=== PATIENT | male | born 1955 | race Caucasian/White ===

== ENCOUNTER 2022-11-05 16:35 | Emergency (ER) | payer OTHER, SELFPAY ==
[2022-11-05 16:49] VITALS: BP 158/93; PULSE 69; RESP 20; TEMP 36.1; O2SAT 95; BMI 40.7
--- NOTE | 2022-11-05 18:48 | CRLHL7_ITS ---
For Patients: As a result of the Century Cures Act, medical imaging exams and procedure reports are released immediately into your electronic medical record. You may view this report before your referring provider. If you have questions, please contact your health care provider. INDICATION: FALL TECHNIQUE: Chest 1 view. COMPARISON: None. FINDINGS: Cardiovascular and mediastinum: Heart size and vasculature are normal in caliber and appearance. Mediastinum is within normal limits. Lungs and pleural space: Lungs are clear. No sign of infiltrate or mass. No sign of pleural effusion. No pneumothorax. Bones and soft tissues: No significant findings. IMPRESSION: Unremarkable chest. Dictated by: Arnold Forde MD @ 11/05/2022 19:20:17 (Electronically Signed)
--- NOTE | 2022-11-05 18:48 | CRLHL7_ITS ---
For Patients: As a result of the Cures Act, medical imaging exams and procedure reports are released immediately into your electronic medical record. You may view this report before your referring provider. If you have questions, please contact your health care provider. INDICATION: Fall TECHNIQUE: Three views right shoulder COMPARISON: None FINDINGS: Bones: Alignment is normal. Displaced distal clavicular fracture. Joint spaces: Unremarkable. Soft tissues: Unremarkable. IMPRESSION: Displaced distal clavicular fracture. Dictated by Arnold Forde MD @ 11/05/2022 7:18:33 PM Dictated by: Arnold Forde MD @ 11/05/2022 19:18:40 (Electronically Signed)
--- NOTE | 2022-11-05 19:03 | ED_ITS ---
HPI - Fall General Chief Complaint: Fall/Minor Trauma Stated Complaint: slipped on ice, rib/shoulder pain Time Seen by Provider: 11/05/22 18:42 History of Present Illness HPI Narrative: This 67-year-old male comes in because of a fall that occurred just prior to arrival. He slipped on ice and fell onto his right scapular region. He states that he did not have loss of consciousness and did not hit his head. He was able to get up and ambulate after this fall. He reports pain in the posterior aspect of his right shoulder in the scapular region. This pain is reproduced a bit when taking a deep breath. He does not report any other injury. Related Data Home Medications Medication Instructions Recorded Confirmed chlorthalidone 25 mg tablet mg 11/05/22 losartan 100 mg tablet mg 11/05/22 Allergies Allergy/AdvReac Type Severity Reaction Status Date / Time No Known Drug Allergies Allergy Verified 11/05/22 16:52 Review of Systems Status of ROS: Reports: 10 or more systems reviewed and unremarkable except as noted in History and below Narrative: Constitutional: No fevers, no weight gain or loss. Eyes: No discharge. No vision changes. HENT: No congestion, no sore throat, no ear pain. Cardiovascular: No chest pain, no palpitations. Respiratory: No shortness of breath, no wheezes, no cough. Gastrointestinal: No abdominal pain, no vomiting, no diarrhea. Genitourinary: No dysuria, no hematuria. Musculoskeletal: Normal range of motion. Pain in the right scapular region. Skin: No rashes, no pruritis. Neurological: No dizziness, weakness, sensory change, speech change. Endo/Heme/Allergies: No bruising or bleeding. No polydipsia. Pysch: no suicidality, no anxiety, no insomnia. All other systems reviewed and are negative. PFSH PFS Social History Smoking Status: Never smoker Do you use any of these nicotine containing products: None Second hand tobacco smoke exposure: No How often do you have a drink containing alcohol: never How often do you have six or more drinks on one occasion: Never AUDIT-C Alcohol total score: 0 Non-prescribed substance use: denies use service: No Exam Narrative: Exam Narrative: Constitutional: Well-developed, well-nourished, no acute distress. HEENT: Normocephalic, atraumatic. Neck: Normal range of motion. Nontender. Supple. Heart: Regular. No murmurs. Normal rate. Intact distal pulses. Lungs: Clear to auscultation. No chest discomfort. No wheezes, rhonchi, or rales. Abdomen: Normal bowel sounds. Nontender. No rebound tenderness. Genitalia: Deferred. Back: No midline tenderness. Normal range of motion. Pain in the right scapular region. No sign of deformity or skin injury. Extremities: Normal range of motion. No injury. Skin: Intact. No rash. Warm. No erythema or pallor. Neurologic: No altered sensation. No weakness. Alert and oriented. Psychiatric: No suicidality. No anxiety or depression. No insomnia. Nursing notes and vitals signs are reviewed. Const: Vital Signs, click to edit/add: Vital Signs - 24 hr 11/05/22 16:49 Temperature 96.9 F L Pulse Rate [Pulse Oximeter] 69 Respiratory Rate 20 Blood Pressure [Ri ght Upper Arm] 158/93 H Pulse Oximetry 95 Oxygen Delivery Me thod Room Air Course Vital Signs Vital signs: Initial Vital Signs Temperature 96.9 F L 11/05/22 16:49 Temperature Source Temporal Artery Scan 11/05/22 16:49 Pulse Rate 69 11/05/22 16:49 Respiratory Rate 20 11/05/22 16:49 Blood Pressure 158/93 H 11/05/22 16:49 Blood Pressure Mean 114 11/05/22 16:49 Blood Pressure Position Supine 11/05/22 16:49 Pulse Oximetry 95 11/05/22 16:49 Oxygen Delivery Method 11/05/22 16:49 Vital Signs Temperature 96.9 F L 11/05/22 16:49 Pulse Rate 69 11/05/22 16:49 Respiratory Rate 20 11/05/22 16:49 Blood Pressure 158/93 H 11/05/22 16:49 Pulse Oximetry 95 11/05/22 16:49 Oxygen Delivery Method 11/05/22 16:49 Temperature 96.9 F L 11/05/22 16:49 Pulse Rate 69 11/05/22 16:49 Respiratory Rate 20 11/05/22 16:49 Blood Pressure 158/93 H 11/05/22 16:49 Pulse Oximetry 95 11/05/22 16:49 Oxygen Delivery Method 11/05/22 16:49 MDM - Fall MDM Narrative Medical decision making narrative: This 67-year-old male comes in with an injury from a fall as described above. X-ray imaging of the chest and the right shoulder show no acute findings. The patient is okay to be discharged home. He did receive a prescription for Instymed [place]. He is encouraged to increase activity as tolerated. Imaging Data XR R Shoulder: Radiologist's impression: Displaced distal clavicular fracture. Chest x-ray: Radiologist's impression: Unremarkable chest. Discharge Plan Discharge Clinical Impression: Contusion of back Patient Disposition: Home, Self-Care Condition: Stable Additional Instructions: Take medication as needed and indicated. Increase activity as tolerated. Follow up with MD or return if worsening. Prescriptions: No Action chlorthalidone 25 mg tablet losartan 100 mg tablet Follow Up/Referrals: Arnold Trujillo MD [Referring] - Stand Alone Forms: [employer] Info Instructions
== END 2022-11-05 20:24 | disposition home or self-care (01) ==
PROVIDERS: Emergency Provider Emergency Medicine Emergency Medical Services; PCP Family Medicine
DX: S20.221A Contusion of right back wall of thorax, initial encounter (principal); W00.0XXA Fall on same level due to ice and snow, initial encounter
CPT/HCPCS: 71045; 73030; 99284

== ENCOUNTER 2023-03-27 14:03 | Outpatient (CLI) | payer OTHER, SELFPAY | END 2023-03-27 14:04 | disposition home or self-care (01) | LOC: AMB 03-28 09:14 | PROVIDERS: PCP Family Medicine; Visit Provider Family Medicine | DX: R53.83 Other fatigue (principal); R53.1 Weakness; R11.0 Nausea; R22.42 Localized swelling, mass and lump, left lower limb | CPT/HCPCS: A0425; A0427 ==

== ENCOUNTER 2023-03-27 14:32 | Inpatient (IN) | payer OTHER, SELFPAY ==
[2023-03-27] VITALS (24 sets, daily range): BP systolic 92–114; BP diastolic 56–89; PULSE 79–88; RESP 14–28; TEMP 35.9–37; O2SAT 1–97; BMI 39.4
--- NOTE | 2023-03-27 14:45 | CRLHL7_ITS ---
For Patients: As a result of the Century Cures Act, medical imaging exams and procedure reports are released immediately into your electronic medical record. You may view this report before your referring provider. If you have questions, please contact your health care provider. INDICATION: Hypoxia, history of PE, leg swelling. COMPARISON: CT chest 07/05/2012. TECHNIQUE: CT chest angiogram PE protocol acquired with 95 cc of Isovue 370 IV contrast. Coronal and sagittal reconstructions. 2D and 3D MIP images for post processing were performed and interpreted on an independent workstation, and 3D images were permanently archived. FINDINGS: Normal heart size. Normal caliber thoracic aorta. Mild coronary artery calcifications. No pericardial effusion. No thoracic lymphadenopathy. Mild bilateral gynecomastia, more prominent on the right but unchanged compared to prior exam. The thyroid gland is normal in appearance. The main pulmonary artery is enlarged measuring 3.7 cm. There are acute pulmonary emboli bilaterally involving the main pulmonary arteries and extending into the segmental and subsegmental branches of all the lobes. Clot burden is large. There is evidence of right heart strain, with enlargement of the right ventricle, flattening of the interventricular septum, and elevated RV/LV ratio measuring 1.5. Bibasilar atelectasis. Patchy opacities in the lingula and superior segment left lower lobe may be infectious/inflammatory versus developing pulmonary infarcts. No pleural effusion or pneumothorax. Diffuse bronchial wall thickening. No central endobronchial lesion. No pulmonary nodules identified. Mild elevation of the left hemidiaphragm. Atrophic nodular left hepatic lobe similar to prior exam. The spleen is enlarged measuring 15 cm in length. Splenule. Punctate calcifications in the pancreatic tail. The visualized upper abdomen is otherwise unremarkable. Degenerative changes of the spine. Subacute appearing fractures of the right anterior 3rd-7th ribs. IMPRESSION: 1. Positive for acute pulmonary emboli bilaterally involving the main pulmonary arteries and all the lobes. Clot burden is large and there is evidence of right heart strain. 2. Patchy opacities in the lingula and left lower lobe may be infectious/inflammatory versus developing pulmonary infarcts. 3. Multiple subacute appearing right rib fractures. 4. Splenomegaly. 5. Findings discussed with Emani melvin at 5:11 p.m. on 03/27/2023. Please note that all CT scans at this facility use dose modulation, iterative reconstruction, and/or weight-based dosing when appropriate to reduce radiation dose to as low as reasonably achievable. Dictated by Amalia Short MD @ 03/27/2023 5:14:09 PM (Electronically Signed)
--- NOTE | 2023-03-27 14:58 | ED_ITS ---
HPI - General Adult General Date Seen: 03/27/23 Chief complaint: Chest Pain Stated complaint: nausea, lightheadedness Time Seen by Provider: 03/27/23 14:44 Source: patient and EMS Mode of arrival: EMS Limitations: no limitations History of Present Illness HPI narrative: Patient is a 67-year-old male who arrives via EMS after developing sudden onset of lightheadedness, nausea and diaphoresis at home about 45 minutes prior to arrival. He had a normal blood sugar per EMS. He had initial blood pressures in the 80s, he was mid 90s after of small amount of normal saline and route. He was satting in the mid 90s on 4 L of oxygen. He denied chest pain. He does have a history of pulmonary embolism he says 10 years ago. He says he was advised to stay on anticoagulation but he says he decided to ?have 3 beers a day instead?. He notes for the past month his left leg has been swollen, he says he was just about to go get it checked out when these symptoms developed. He has not had significant pain in the leg but it has been somewhat red. He says there was not significant certainty around why he developed a clot 10 years ago, it was not related to surgery or travel. Did not have syncopal episode today. EKG per paramedics showed a little ST depression, but no ST elevation or arrhythmia. Related Data Home Medications Medication Instructions Recorded Confirmed chlorthalidone 25 mg tablet 25 mg PO DAILY 11/05/22 03/27/23 losartan 100 mg tablet 100 mg PO DAILY 11/05/22 03/27/23 fluticasone propionate 50 2 spray intranasal DAILY 03/27/23 03/27/23 mcg/actuation nasal spray,suspension Allergies Allergy/AdvReac Type Severity Reaction Status Date / Time No Known Drug Allergies Allergy Verified 11/05/22 16:52 Review of Systems Status of ROS: Reports: 10 or more systems reviewed and unremarkable except as noted in History and below PFSH PFS Social History Smoking Status: Never smoker Do you use any of these nicotine containing products: None Second hand tobacco smoke exposure: No How often do you have a drink containing alcohol: never How often do you have six or more drinks on one occasion: Never AUDIT-C Alcohol total score: 0 Non-prescribed substance use: denies use service: No Exam Narrative: Exam Narrative: Vital signs as noted above. In general, an alert, diaphoretic male. Speaks in full sentences. Head: Normocephalic, atraumatic. Eyes: Pupils are equal reactive. Extraocular movements are full. Conjunctivae are normal. ENT: Mucous membranes are moist. Neck: Supple without lymphadenopathy. Heart: Regular rate and rhythm. No murmur or rub. Lungs: Clear bilaterally. No increased work of breathing, crackles or wheezes. Abdomen: Soft and nontender. Obese. Extremities: Significant edema and erythema noted in the left lower extremity. Neurologic: Patient is alert and oriented to person and place. Speech is fluent. Face is symmetric. Moves all extremities equally. Affect: Normal. Skin: Diaphoretic on arrival. Well perfused. Const: Vital Signs, click to edit/add: Vital Signs - 24 hr 03/27/23 14:33 03/27/23 14:43 03/27/23 14:47 Temperature 98.6 F Pulse Rate 82 Pulse Rate [Pulse Oximeter] 87 Respiratory Rate 28 H Blood Pressure 106/74 Blood Pressure [Le ft Upper Arm] 106/74 Pulse Oximetry 93 91 92 Oxygen Delivery Me thod Nasal Cannula Nasal Cannula Oxygen Flow Rate 4 4 03/27/23 14:47 03/27/23 15:12 03/27/23 15:15 Temperature Pulse Rate 83 83 Pulse Rate [Pulse Oximeter] Respiratory Rate Blood Pressure 92/62 Blood Pressure [Le ft Upper Arm] Pulse Oximetry 92 87 L 90 Oxygen Delivery Me thod Nasal Cannula Oxygen Flow Rate 4 6 03/27/23 15:17 03/27/23 15:30 03/27/23 15:32 Temperature Pulse Rate 82 84 86 Pulse Rate [Pulse Oximeter] Respiratory Rate Blood Pressure 97/68 92/58 L Blood Pressure [Le ft Upper Arm] Pulse Oximetry 95 95 93 Oxygen Delivery Me thod Oxygen Flow Rate 5 03/27/23 15:45 03/27/23 15:47 03/27/23 16:00 Temperature Pulse Rate 86 88 84 Pulse Rate [Pulse Oximeter] Respiratory Rate 16 Blood Pressure 100/62 Blood Pressure [Le ft Upper Arm] Pulse Oximetry 92 92 96 Oxygen Delivery Me thod Oxygen Flow Rate 03/27/23 16:02 03/27/23 16:15 03/27/23 16:17 Temperature Pulse Rate 88 88 86 Pulse Rate [Pulse Oximeter] Respiratory Rate 14 Blood Pressure 103/60 102/75 Blood Pressure [Le ft Upper Arm] Pulse Oximetry 96 95 96 Oxygen Delivery Me thod Room Air Oxygen Flow Rate 03/27/23 16:35 03/27/23 16:45 Temperature Pulse Rate 86 87 Pulse Rate [Pulse Oximeter] Respiratory Rate Blood Pressure 108/56 L Blood Pressure [Le ft Upper Arm] Pulse Oximetry 86 L 93 Oxygen Delivery Me thod Room Air Nasal Cannula Oxygen Flow Rate 4 Documenting provider has reviewed patient's vital signs: yes Course Course Hospital Course: On arrival, patient was maintained on monitor, oxygen, oximetry. He had an EKG which is of poor quality, lot of baseline waiver. Computer cause this an accelerated junctional rhythm, I suspect that it may be sinus with a first- degree AV block. Difficult to comment on any ST segment changes due to baseline waiver but I do not think there is any ST segment elevation. I did attempt to look with the ultrasound for right ventricular dilation but due to body habitus images are fairly limited and I do not feel comfortable making a determination based on ultrasound. I did ask CT to take him over for CT scan rate away. He does not have a known history of renal insufficiency and I think risk versus benefit the importance of evaluating for pulmonary embolism outweighs awaiting determination of creatinine in this case. I strongly suspect pulmonary embolism as the cause of his symptoms, but other considerations would include acute coronary syndrome, dissection, infectious or metabolic process. CT scan by my review shows large clot in the main right in main left pulmonary arteries. I am awaiting formal CT read but I have treated with heparin based on my read as CT reads are taking a significant amount of time today. He is requiring 4-5 L of oxygen. I did talk with Dr. Ha who was on-call as educational technology coordinator at [facility] [place], to discuss possible tPA. Patient is not showing significant right heart strain, troponin was 0.01, EKG did not show an S1 Q3 T3 pattern he is not tachycardic and hypotension has responded to a fluid challenge. Therefore, Dr. Ha recommended against tPA at this time. Will continue to monitor. Plan will be admission here for IV heparin for 24 hours. Will also order an ultrasound of the left lower extremity given significant edema to look for residual clot, for risk assessment purposes. Critical care 60 minutes. Vital Signs Vital signs: Initial Vital Signs Temperature 98.6 F 03/27/23 14:33 Temperature Source Oral 03/27/23 14:33 Pulse Rate 87 03/27/23 14:33 Respiratory Rate 28 H 03/27/23 14:33 Respiratory Effort Normal, Spontaneous, Non-Labored 03/27/23 14:33 Respiratory Depth Normal 03/27/23 14:33 Blood Pressure 106/74 03/27/23 14:33 Blood Pressure Mean 84 03/27/23 14:33 Blood Pressure Position Supine 03/27/23 14:33 Pulse Oximetry 93 03/27/23 14:33 Oxygen Delivery Method Nasal Cannula 03/27/23 14:33 Oxygen Flow Rate 4 03/27/23 14:33 Vital Signs Temperature 98.6 F 03/27/23 14:33 Pulse Rate 87 03/27/23 14:33 Respiratory Rate 28 H 03/27/23 14:33 Blood Pressure 106/74 03/27/23 14:33 Pulse Oximetry 93 03/27/23 14:33 Oxygen Delivery Method Nasal Cannula 03/27/23 14:33 Oxygen Flow Rate 4 03/27/23 14:33 Temperature 98.6 F 03/27/23 14:33 Pulse Rate 87 03/27/23 16:45 Respiratory Rate 14 03/27/23 16:02 Blood Pressure 108/56 L 03/27/23 16:35 Pulse Oximetry 93 03/27/23 16:45 Oxygen Delivery Method Nasal Cannula 03/27/23 16:45 Oxygen Flow Rate 4 03/27/23 16:45 Medical Decision Making Lab Data Labs: Lab Results 03/27/23 03/27/23 Range/Units 14:52 16:00 WBC 10.63 (4.50-11.00) K/uL RBC 4.54 (4.30-5.90) m/uL Hgb 13.9 (13.5-17.5) gm/dL Hct 40.9 (37.0-53.0) % MCV 90 (80-100) fL MCH 31 (26-34) pg MCHC 34 (32-36) gm/dL RDW Coeff of Robert 15.2 (11.5-15.5) % Plt Count 142 (140-440) K/uL Neut % (Auto) 75.8 H (42.0-72.0) % Lymph % (Auto) 17.1 L (20-44) % Merrick % (Auto) 4.0 (0.0-11.0) % Eos % (Auto) 2.5 (0.0-7.0) % Baso % (Auto) 0.2 (0.0-3.0) % Neut # (Auto) 8.10 H (1.7-7.0) K/uL Lymph # (Auto) 1.80 (0.90-2.90) K/uL Merrick # (Auto) 0.40 (0.00-0.90) K/UL Eos # (Auto) 0.27 (0.00-0.50) K/uL Baso # (Auto) 0.02 (0.00-0.30) K/uL Abs Immat Gran (auto) 0.04 (0.00-0.30) K/uL Imm/Tot Granulo (auto) 0.4 % INR 1.16 H (0.91-1.10) D-Dimer Quant (PE/DVT) 7.27 H (0.00-0.50) ug/ml VBG pH 7.359 (7.32-7.43) VBG pCO2 51 H (40-50) mmHG VBG pO2 32.7 (25-47) mmHG VBG HCO3 29 H (21-28) mmol/L Sodium 137 (135-149) mmol/L Potassium 2.7 L* (3.6-5.1) mmol/L Chloride 99 (96-114) mmol/L Carbon Dioxide 29 (20-32) mmol/L BUN 20 (7-30) mg/dL Creatinine 1.2 (0.5-1.5) mg/dL Estimated GFR 66 ml/min Glucose 145 H (60-115) mg/dL Calcium 8.6 (8.4-10.6) mg/dL Total Bilirubin 0.9 (0.1-1.5) mg/dL Direct Bilirubin 0.2 (0.0-0.5) mg/dL AST 36 H (12-35) U/L ALT 36 (4-50) U/L Alkaline Phosphatase 65 (40-150) U/L Lactate Baseline 1.7 (0.5-1.9) mmol/L C-Reactive Protein 1.1 H (0.5-1.0) mg/dL NT-Pro-B Natriuret Pep 100 pg/mL Total Protein 7.2 (6.0-8.3) g/dL Albumin 3.9 (3.3-5.0) g/dL TSH 2.880 (0.270-4.200) uIU/mL SARS-CoV-2 (PCR) Negative SARS-CoV-2 (Negative) POC Troponin I 0.01 (0.01-0.04) ng/ml Discharge Plan Discharge Clinical Impression: Pulmonary embolism Patient Disposition: Admitted As Observation Condition: Improved
--- NOTE | 2023-03-27 15:00 | ED.NURSE ---
Pt at imaging.
[2023-03-27 15:03] LABS: Basophils Absolute Auto 0.02 K/uL (0.00-0.30); Basophils Percent Auto 0.2 % (0.0-3.0); Eosinophils Absolute Auto 0.27 K/uL (0.00-0.50); Eosinophils Percent Auto 2.5 % (0.0-7.0); Hematocrit 40.9 % (37.0-53.0); Hemoglobin* 13.9 gm/dL (13.5-17.5); Immature Granulocytes Abs Auto 0.04 K/uL (0.00-0.30); Immature Granulocytes Pct Auto 0.4 %; Lymphocytes Percent Auto 17.1 % (20-44); Mean Corpuscular HGB Conc 34 gm/dL (32-36); Mean Corpuscular Hemoglobin 31 pg (26-34); Mean Corpuscular Volume 90 fL (80-100); Neutrophils Percent Auto 75.8 % (42.0-72.0); Platelet Count* 142 K/uL (140-440); RDW Coefficient of Variation % 15.2 % (11.5-15.5); Red Blood Count 4.54 m/uL (4.30-5.90); White Blood Count* 10.63 K/uL (4.50-11.00)
[2023-03-27 15:04] LABS: HCO3 VBG 29 mmol/L (21-28); Lactate Sepsis w/Reflex* 1.7 mmol/L (0.5-1.9); PCO2 VBG 51 mmHG (40-50); PO2 VBG 32.7 mmHG (25-47); pH VBG 7.359 (7.32-7.43)
[2023-03-27 15:10] LABS: Slide Review Reflex No
[2023-03-27 15:19] LABS: Troponin, Point-of-Care* 0.01 ng/ml (0.01-0.04)
[2023-03-27 15:22] LABS: Albumin* 3.9 g/dL (3.3-5.0); Chloride* 99 mmol/L (96-114)
[2023-03-27 15:23] LABS: Sodium* 137 mmol/L (135-149)
[2023-03-27 15:25] LABS: Creatinine* 1.2 mg/dL (0.5-1.5); Estimated Glomerular Filt Rate 66 ml/min
[2023-03-27 15:26] LABS: Alanine Aminotransferase* 36 U/L (4-50); Alkaline Phosphatase* 65 U/L (40-150); Aspartate Amino Transferase* 36 U/L (12-35); Bilirubin Direct* 0.2 mg/dL (0.0-0.5); Bilirubin Total* 0.9 mg/dL (0.1-1.5); Blood Urea Nitrogen* 20 mg/dL (7-30); Calcium* 8.6 mg/dL (8.4-10.6); Carbon Dioxide* 29 mmol/L (20-32); Glucose* 145 mg/dL (60-115); INR 1.16 (0.91-1.10); Prothrombin Time 15.5 Seconds; Total Protein* 7.2 g/dL (6.0-8.3)
[2023-03-27 15:29] LABS: C Reactive Protein* 1.1 mg/dL (0.5-1.0)
[2023-03-27] MEDS: 0.9 % SODIUM CHLORIDE 1000 ml 1,000 ML IV (15:33)
[2023-03-27] MEDS: HEPARIN 5,000 UNIT/0.5 ML INJ 10000 UNIT IVP (15:34)
[2023-03-27 15:37] LABS: D Dimer Quantitative* 7.27 ug/ml (0.00-0.50)
[2023-03-27] MEDS: HEPARIN 25,000 UNIT/500 ML BAG 30 UNIT IV (15:37)
--- NOTE | 2023-03-27 15:43 | CRLHL7_ITS ---
For Patients: As a result of the Century Cures Act, medical imaging exams and procedure reports are released immediately into your electronic medical record. You may view this report before your referring provider. If you have questions, please contact your health care provider. HISTORY: Known pulmonary embolism. Left leg swelling. TECHNIQUE: The venous system of left lower extremity was examined using grayscale, color and Doppler techniques. Compression was assessed where able to be assessed. The contralateral right common femoral vein was also evaluated. COMPARISON: Chest CT from 03/27/2023. FINDINGS: DVT is present within the left common femoral, femoral, deep femoral, popliteal, peroneal and posterior tibial veins. The DVT could extend more centrally into the left external iliac vein. The contralateral right common femoral vein is patent. IMPRESSION: Extensive DVT throughout the left leg in this patient with known pulmonary embolism. Dictated by Onel Montes MD @ 03/27/2023 6:24:19 PM Dictated by: Onel Montes MD @ 03/27/2023 18:24:25 (Electronically Signed)
[2023-03-27 15:46] LABS: NT Pro B Type NatriureticPept* 100 pg/mL; Potassium* 2.7 mmol/L (3.6-5.1)
[2023-03-27] MEDS: POTASSIUM BICARB 25 MEQ EFFERVESCENT TAB 50 MEQ PO ×2 (16:24→17:54)
--- NOTE | 2023-03-27 16:49 | ED.NURSE ---
Report given to ROSETTA Sanchez. Pt will go to [facility].
[2023-03-27 16:56] LABS: SARS PCR* Negative SARS-CoV-2 (Negative)
--- NOTE | 2023-03-27 18:45 | PC.NURSE ---
end of shift. pt was admitted to ED with heparin drip running . he is alert x3. he was 85 On RA and he has been on 1-2L nc. tele shows 1st degree HB. his left leg is very swollen +4/ PE in the left lung. he is drinking. no food so far. he has not needed to void so far. he has IV in both arms. son and where here. he has no pain but he is feeling weak , tired and lethargic. PTT @ 2130.
--- NOTE | 2023-03-27 19:03 | P.IMHP_ITS ---
Hospitalist- H&P: HPI History of Present Illness Date Seen: 03/27/23 Chief complaint: Stemi Narrative: Ady Guerrero is a 67 year old male with history of pulmonary embolism admitted through the emergency department with a syncopal episode at home. Patient reports over the last month he has been having some increasing fatigue and swelling in his left leg. He had an appointment today to evaluate for a DVT in his left leg as he had previously had 1 there in the past, about 10 years ago. The swelling got quite a bit worse this morning. While I was at home he had a syncopal episode and his brought him to the emergency room. In the emergency department he was found to have extensive clot extending up into the iliac vein on the left as well as a large burden of bilateral pulmonary emboli and right heart strain. He was hypotensive in the emergency department but blood pressure improved with fluid bolus. He reports feeling fine at this time without chest pain or dyspnea. He remains hypoxic with O2 sats in the upper 80s on room air. Notably not dyspneic with those O2 sats in the upper 80s.Dr Melvin contacted the pulmonary embolism response team at [facility]. They did not feel he had indication for transfer for thrombolysis at this time. About a decade ago he had previous pulmonary embolism. This presented with hemoptysis. He was treated with warfarin for 6 straight months. He thinks that might have been provoked by a leg injury at that time. His mother does also have a history of recurrent DVT. He has had no recent immobilization. He has not been ill or bed ridden. No recent surgery or injury. No bleeding problems. Review of Systems Narrative: Patient reports swelling in his leg for about a month now. He has had chronic lower extremity edema especially in the left leg but to a lesser extent in the right leg. He also has venous stasis skin changes in both legs. He reports he has otherwise been feeling well without recent illness. [facility] Medical History (Updated 03/27/23 @ 19:22 by Ron Damon MD) DVT (deep venous thrombosis) ?I82.409 - Acute embolism and thrombosis of unspecified deep veins of unspecified lower extremity (ICD-10) Sleep apnea ?G47.30 - Sleep apnea, unspecified (ICD-10) Obesity ?E66.9 - Obesity, unspecified (ICD-10) Gastroesophageal reflux disease ?K21.9 - Gastro-esophageal reflux disease without esophagitis (ICD-10) Seasonal allergies ?J30.2 - Other seasonal allergic rhinitis (ICD-10) Hypertension ?I10 - Essential (primary) hypertension (ICD-10) Surgical History (Updated 03/27/23 @ 19:14 by Ron Damon MD) H/O inguinal hernia repair ?Z98.890 - Other specified postprocedural states (ICD-10) ?Z87.19 - Personal history of other diseases of the digestive system (ICD-10) H/O umbilical hernia repair ?Z98.890 - Other specified postprocedural states (ICD-10) ?Z87.19 - Personal history of other diseases of the digestive system (ICD-10) Family History (Updated 03/27/23 @ 19:15 by Ron Damon MD) Father High blood pressure Heart disease Social History (Updated 03/27/23 @ 19:16 by Ron Damon MD) Narrative: [place]. 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 His is healthcare power of civil attorney. Code status is full. He does not smoke. Drinks 0-3 beers per day. He does not have any withdrawal symptoms if he does not drink What is your current living situation?: I presently have a place to live Problems where you live: no known problems Problems where you live details: na In the past 12 months, utilities in danger of being shut off: no In the past 12 mos, have been you worried that your food would run out before you had money to buy more?: never true In the past 12 mos, the food you bought just didn't last and you didn't have money to buy more?: never true Highest level of school completed/degree received: some college, no degree Smoking Status: Never smoker Do you use any of these nicotine containing products: None Second hand tobacco smoke exposure: No How often do you have a drink containing alcohol: 2-3 times a week Alcohol type: beer How many standard drinks containing alcohol do you have on a typical day: 1 or 2 How often do you have six or more drinks on one occasion: Never AUDIT-C Alcohol total score: 3 Non-prescribed substance use: denies use Caffeine: Yes (little) How often does anyone, including family, friends and others, physically hurt you : never How often does anyone, including family, friends and others, insult or talk down to you: never How often does anyone, including family, friends and others, threaten you with harm: never How often does anyone, including family, friends and others, scream or curse at you: never service: No Meds Home Medications and Allergies Home Medications Medication Instructions Recorded Confirmed Type chlorthalidone 25 mg tablet 25 mg PO DAILY 11/05/22 03/27/23 History losartan 100 mg tablet 100 mg PO DAILY 11/05/22 03/27/23 History fluticasone propionate 50 2 spray intranasal DAILY 03/27/23 03/27/23 History mcg/actuation nasal spray,suspension Allergies Allergy/AdvReac Type Severity Reaction Status Date / Time No Known Drug Allergies Allergy Verified 11/05/22 16:52 Exam Narrative: Exam Narrative: He is alert and appears in no distress. He gives his own history. Breathing is unlabored though on room air I see his O2 sats are 85-86 %. Eyes normal. Oropharynx normal with small airway. Neck is supple without mass or adenopathy. Respirations are clear to auscultation with a rare basilar crackle. Cardiovascular: S1, S2, regular rate and rhythm. No murmur gallop or rub. Abdomen: Bowel sounds active. Abdomen is soft without tenderness or mass. Exte rnal genitalia normal. Upper extremities are normal. Lower extremities notable for 3+ edema in left lower extremity with [id number] areas of erythema. Right lower extremity has 2+ edema with significant brawny induration over the calf. Pedal pulses bilaterally are intact. Feet are warm to touch. Const: Vital Signs, click to edit/add: Vital Signs - 24 hr 03/27/23 14:33 03/27/23 14:43 03/27/23 14:47 Temperature 98.6 F Pulse Rate 82 Pulse Rate [Pulse Oximeter] 87 Pulse Rate [Right Radial] Respiratory Rate 28 H Blood Pressure 106/74 Blood Pressure [Le ft Upper Arm] 106/74 Blood Pressure [Ri ght Arm] Pulse Oximetry 93 91 92 Oxygen Delivery Me thod Nasal Cannula Nasal Cannula Oxygen Flow Rate 4 4 03/27/23 14:47 03/27/23 15:12 03/27/23 15:15 Temperature Pulse Rate 83 83 Pulse Rate [Pulse Oximeter] Pulse Rate [Right Radial] Respiratory Rate Blood Pressure 92/62 Blood Pressure [Le ft Upper Arm] Blood Pressure [Ri ght Arm] Pulse Oximetry 92 87 L 90 Oxygen Delivery Me thod Nasal Cannula Oxygen Flow Rate 4 6 03/27/23 15:17 03/27/23 15:30 03/27/23 15:32 Temperature Pulse Rate 82 84 86 Pulse Rate [Pulse Oximeter] Pulse Rate [Right Radial] Respiratory Rate Blood Pressure 97/68 92/58 L Blood Pressure [Le ft Upper Arm] Blood Pressure [Ri ght Arm] Pulse Oximetry 95 95 93 Oxygen Delivery Me thod Oxygen Flow Rate 5 03/27/23 15:45 03/27/23 15:47 03/27/23 16:00 Temperature Pulse Rate 86 88 84 Pulse Rate [Pulse Oximeter] Pulse Rate [Right Radial] Respiratory Rate 16 Blood Pressure 100/62 Blood Pressure [Le ft Upper Arm] Blood Pressure [Ri ght Arm] Pulse Oximetry 92 92 96 Oxygen Delivery Me thod Oxygen Flow Rate 03/27/23 16:02 03/27/23 16:15 03/27/23 16:17 Temperature Pulse Rate 88 88 86 Pulse Rate [Pulse Oximeter] Pulse Rate [Right Radial] Respiratory Rate 14 Blood Pressure 103/60 102/75 Blood Pressure [Le ft Upper Arm] Blood Pressure [Ri ght Arm] Pulse Oximetry 96 95 96 Oxygen Delivery Me thod Room Air Oxygen Flow Rate 03/27/23 16:35 03/27/23 16:45 03/27/23 17:28 Temperature 98.6 F Pulse Rate 86 87 Pulse Rate [Pulse Oximeter] Pulse Rate [Right Radial] 88 Respiratory Rate 18 Blood Pressure 108/56 L Blood Pressure [Le ft Upper Arm] Blood Pressure [Ri ght Arm] 107/75 Pulse Oximetry 86 L 93 93 Oxygen Delivery Me thod Room Air Nasal Cannula Nasal Cannula Oxygen Flow Rate 4 1 03/27/23 17:32 03/27/23 17:38 03/27/23 18:28 Temperature 96.8 F L Pulse Rate 83 Pulse Rate [Pulse Oximeter] Pulse Rate [Right Radial] 88 Respiratory Rate 18 18 Blood Pressure Blood Pressure [Le ft Upper Arm] Blood Pressure [Ri ght Arm] 107/75 Pulse Oximetry 1 L 2 L Oxygen Delivery Me thod Nasal Cannula Nasal Cannula Oxygen Flow Rate 03/27/23 18:29 Temperature Pulse Rate Pulse Rate [Pulse Oximeter] Pulse Rate [Right Radial] Respiratory Rate Blood Pressure Blood Pressure [Le ft Upper Arm] Blood Pressure [Ri ght Arm] Pulse Oximetry 92 Oxygen Delivery Me thod Nasal Cannula Oxygen Flow Rate 2 Documenting provider has reviewed patient's vital signs: yes Hospitalist - H&P: Result Labs Labs: Short CBC 03/27/23 Range/Units 14:52 WBC 10.63 (4.50-11.00) K/uL Hgb 13.9 (13.5-17.5) gm/dL Hct 40.9 (37.0-53.0) % Plt Count 142 (140-440) K/uL BMP 03/27/23 14:52 Sodium 137 Potassium 2.7 L* Chloride 99 Carbon Dioxide 29 BUN 20 Creatinine 1.2 Glucose 145 H Calcium 8.6 Liver Function 03/27/23 Range/Units 14:52 Total Bilirubin 0.9 (0.1-1.5) mg/dL Direct Bilirubin 0.2 (0.0-0.5) mg/dL AST 36 H (12-35) U/L ALT 36 (4-50) U/L Alkaline Phosphatase 65 (40-150) U/L Albumin 3.9 (3.3-5.0) g/dL Imaging CT scan - chest: Radiologist's impression: INDICATION: Hypoxia, history of PE, leg swelling. COMPARISON: CT chest 07/05/2012. TECHNIQUE: CT chest angiogram PE protocol acquired with 95 cc of Isovue 370 IV contrast. Coronal and sagittal reconstructions. 2D and 3D MIP images for post processing were performed and interpreted on an independent workstation, and 3D images were permanently archived. FINDINGS: Normal heart size. Normal caliber thoracic aorta. Mild coronary artery calcifications. No pericardial effusion. No thoracic lymphadenopathy. Mild bilateral gynecomastia, more prominent on the right but unchanged compared to prior exam. The thyroid gland is normal in appearance. The main pulmonary artery is enlarged measuring 3.7 cm. There are acute pulmonary emboli bilaterally involving the main pulmonary arteries and extending into the segmental and subsegmental branches of all the lobes. Clot burden is large. There is evidence of right heart strain, with enlargement of the right ventricle, flattening of the interventricular septum, and elevated RV/LV ratio measuring 1.5. Bibasilar atelectasis. Patchy opacities in the lingula and superior segment left lower lobe may be infectious/inflammatory versus developing pulmonary infarcts. No pleural effusion or pneumothorax. Diffuse bronchial wall thickening. No central endobronchial lesion. No pulmonary nodules identified. Mild elevation of the left hemidiaphragm. Atrophic nodular left hepatic lobe similar to prior exam. The spleen is enlarged measuring 15 cm in length. Splenule. Punctate calcifications in the pancreatic tail. The visualized upper abdomen is otherwise unremarkable. Degenerative changes of the spine. Subacute appearing fractures of the right anterior 3rd-7th ribs. IMPRESSION: 1. Positive for acute pulmonary emboli bilaterally involving the main pulmonary arteries and all the lobes. Clot burden is large and there is evidence of right heart strain. 2. Patchy opacities in the lingula and left lower lobe may be infectious/inflammatory versus developing pulmonary infarcts. 3. Multiple subacute appearing right rib fractures. 4. Splenomegaly. 5. Findings discussed with Emani melvin at 5:11 p.m. on 03/27/2023. Venous US: Radiologist's impression: HISTORY: Known pulmonary embolism. Left leg swelling. TECHNIQUE: The venous system of left lower extremity was examined using grayscale, color and Doppler techniques. Compression was assessed where able to be assessed. The contralateral right common femoral vein was also evaluated. COMPARISON: Chest CT from 03/27/2023. FINDINGS: DVT is present within the left common femoral, femoral, deep femoral, popliteal, peroneal and posterior tibial veins. The DVT could extend more centrally into the left external iliac vein. The contralateral right common femoral vein is patent. IMPRESSION: Extensive DVT throughout the left leg in this patient with known pulmonary embolism. Dictated by Onel Montes MD @ 03/27/2023 6:24:19 PM Assessment and Plan Assessment and plan (1) Pulmonary embolism: Problem comment: Extensive burden of pulmonary emboli. Right heart strain. Initiate IV heparin. Monitor for recurrent hypotension or respiratory failure which would be indications for transfer for thrombolytics. Transition to oral apixaban when stable. Recommend lifelong anticoagulation Status: Acute (2) DVT (deep venous thrombosis): Problem comment: Extensive clot in left lower extremity Status: Acute (3) Sleep apnea: Problem comment: Clinically suspected. Recommend outpatient evaluation for this after recovering from pulmonary embolism Status: Suspected (4) Hypertension: Problem comment: Low blood pressure on presentation due to PE. Hold antihypertensives for now. Status: Acute Plan 67-year-old male admitted to the hospital for syncope due to extensive burden of pulmonary emboli and DVT. Treat with IV heparin until stable. Further risk stratification with echocardiogram. Hold blood pressure medicines. Transition to oral apixaban when stable. Consider outpatient sleep study to evaluate clinically suspected sleep apnea. Total time spent today is 90 minutes, 50 minutes in coordination of care discussing with patient and son and other providers management of submassive PE
[2023-03-27] MEDS: SODIUM CHLORIDE 0.9 % (FLUSH) 10 ML SYRINGE 5 ML IVF (20:42)
[2023-03-27 22:11] LABS: Partial Thromboplastin Time* 146 Seconds (23-33)
[2023-03-27] MEDS: PSEUDOEPHEDRINE HCL 30 MG TABLET PO (23:22)
[2023-03-28] VITALS (11 sets, daily range): BP systolic 106–120; BP diastolic 70–79; PULSE 77–94; RESP 20–24; TEMP 35.7–37; O2SAT 91–96
[2023-03-28 05:29] LABS: Basophils Absolute Auto 0.02 K/uL (0.00-0.30); Basophils Percent Auto 0.2 % (0.0-3.0); Eosinophils Absolute Auto 0.19 K/uL (0.00-0.50); Eosinophils Percent Auto 2.1 % (0.0-7.0); Hematocrit 39.7 % (37.0-53.0); Hemoglobin* 13.4 gm/dL (13.5-17.5); Immature Granulocytes Abs Auto 0.01 K/uL (0.00-0.30); Immature Granulocytes Pct Auto 0.1 %; Lymphocytes Absolute Auto 2.21 K/uL (0.90-2.90); Lymphocytes Percent Auto 24.7 % (20-44); Mean Corpuscular HGB Conc 34 gm/dL (32-36); Mean Corpuscular Hemoglobin 31 pg (26-34); Mean Corpuscular Volume 91 fL (80-100); Monocytes Percent Auto 6.1 % (0.0-11.0); Neutrophils Absolute Auto 5.97 K/uL (1.7-7.0); Neutrophils Percent Auto 66.8 % (42.0-72.0); Platelet Count* 154 K/uL (140-440); RDW Coefficient of Variation % 15.3 % (11.5-15.5); Red Blood Count 4.38 m/uL (4.30-5.90); Slide Review Reflex No; White Blood Count* 8.95 K/uL (4.50-11.00)
[2023-03-28 05:35] LABS: Chloride* 98 mmol/L (96-114); Potassium* 3.4 mmol/L (3.6-5.1); Sodium* 136 mmol/L (135-149)
[2023-03-28 05:37] LABS: Partial Thromboplastin Time* 41 Seconds (23-33)
[2023-03-28 05:38] LABS: Blood Urea Nitrogen* 17 mg/dL (7-30); Carbon Dioxide* 34 mmol/L (20-32); Est. Creatinine Clearance* 81.01; Estimated Glomerular Filt Rate 82 ml/min; Glucose* 124 mg/dL (60-115)
[2023-03-28 05:39] LABS: Calcium* 8.7 mg/dL (8.4-10.6)
[2023-03-28 05:54] LABS: NT Pro B Type NatriureticPept* 943 pg/mL; Troponin I* 0.49 ng/mL (0.01-0.04)
[2023-03-28] MEDS: HEPARIN 5,000 UNIT/0.5 ML INJ 4000 UNIT IVP (06:11)
--- NOTE | 2023-03-28 06:33 | PC.NURSE ---
[id number] Pt pleasant and cooperative, ambulating with SBA to br, de-sats to low 80's with ambulation, denies SOB, light headedness/dizziness. Pt denies chest pain, headache or any pain. 1LPM NC O2 required to maintain sats. Pt expresses frequent desire to go home, education done with patient on seriousness of DVT/PE, printed material given to patient, pt somewhat receptive to education, makes frequent comments about self medicating with beer vs taking anticoagulants. tolerating heparin gtt, PTT drawn as scheduled, titration/bolus completed per protocol, pt tolerated. critical troponin received at 0554, clay GAYTAN updated, no new orders received at this time. Pt continues to deny chest pain, SOB, difficulty breathing or any pain.
[2023-03-28] MEDS: THIAMINE 100 MG TABLET PO (08:59)
[2023-03-28] MEDS: SODIUM CHLORIDE 0.9 % (FLUSH) 10 ML SYRINGE 5 ML IVF ×2 (09:00→20:52)
[2023-03-28] MEDS: HEPARIN 25,000 UNIT/500 ML BAG 27 UNIT IV (11:07)
--- NOTE | 2023-03-28 11:28 | P.IMPN_ITS ---
Progress Note: A&P Assessment and plan (1) Pulmonary embolism: Problem details: - extensive burden of pulmonary emboli with evidence of right heart strain on CT performed in ED - hemodynamically stable, asymptomatic - IV heparin initiated on admission, will continue for 24 hours, then transi tion to oral apixaban - recurrent clot; will need lifelong anticoagulation. This was discussed with patient in detail on 03/28 Status: Acute (2) DVT (deep venous thrombosis): Problem details: - extensive. Per formal radiology read: DVT is present within the left common femoral, femoral, deep femoral, popliteal, peroneal and posterior tibial veins. The DVT could extend more centrally into the left external iliac vein. The contralateral right common femoral vein is patent. Status: Acute (3) Sleep apnea: Problem details: - clinically suspected; recommend outpatient evaluation for this after recovering from pulmonary embolism Status: Suspected (4) Hypertension: Problem details: - hypotension on admission, 2/2 PE. Holding home Chlorthalidone and Losartan Status: Acute Plan - per above - heparin gtt --> Apixaban for ppx - home with when medically appropriate with close PCP f/u Subjective Date Seen: 03/28/23 Interval history: Ady is feeling better today. He has no concerns for the hospitalist team; specifically denies chest pain or shortness of breath. Notes that left lower extremity feels tight, no significant pain. He is tolerating the heparin drip. He has an echocardiogram scheduled for later this afternoon. There was concern about his ETOH use overnight; he endorses occasional binge dri nking (3-5 beers) once or twice/week. He is not a daily ETOH user and has never had withdrawal. Exam Narrative: Exam Narrative: GEN: Alert and oriented, sitting up in bed answering questions appropriately without dyspnea HEENT: EOMIs bilaterally, no scleral icterus CV: RRR, No concerning murmurs R: LCTA bilaterally without concerning wheezing, air movement is adequate Ext: 2-3+ nonpitting edema, left lower extremity. Peripheral pulses are intact and he is able to wiggle his toes, normal capillary refill. Skin: No concerning skin lesions or rashes on exposed skin Neuro: No focal deficits, no resting tremor Psych: Appropriate Const: Vital Signs, click to edit/add: Vital Signs - 24 hr 03/27/23 14:33 03/27/23 14:43 03/27/23 14:47 Temperature 98.6 F Pulse Rate 82 Pulse Rate [Pulse Oximeter] 87 Pulse Rate [Right Radial] Respiratory Rate 28 H Blood Pressure 106/74 Blood Pressure [Le ft Upper Arm] 106/74 Blood Pressure [Ri ght Arm] Pulse Oximetry 93 91 92 Oxygen Delivery Me thod Nasal Cannula Nasal Cannula Oxygen Flow Rate 4 4 03/27/23 14:47 03/27/23 15:12 03/27/23 15:15 Temperature Pulse Rate 83 83 Pulse Rate [Pulse Oximeter] Pulse Rate [Right Radial] Respiratory Rate Blood Pressure 92/62 Blood Pressure [Le ft Upper Arm] Blood Pressure [Ri ght Arm] Pulse Oximetry 92 87 L 90 Oxygen Delivery Me thod Nasal Cannula Oxygen Flow Rate 4 6 03/27/23 15:17 03/27/23 15:30 03/27/23 15:32 Temperature Pulse Rate 82 84 86 Pulse Rate [Pulse Oximeter] Pulse Rate [Right Radial] Respiratory Rate Blood Pressure 97/68 92/58 L Blood Pressure [Le ft Upper Arm] Blood Pressure [Ri ght Arm] Pulse Oximetry 95 95 93 Oxygen Delivery Me thod Oxygen Flow Rate 5 03/27/23 15:45 03/27/23 15:47 03/27/23 16:00 Temperature Pulse Rate 86 88 84 Pulse Rate [Pulse Oximeter] Pulse Rate [Right Radial] Respiratory Rate 16 Blood Pressure 100/62 Blood Pressure [Le ft Upper Arm] Blood Pressure [Ri ght Arm] Pulse Oximetry 92 92 96 Oxygen Delivery Me thod Oxygen Flow Rate 03/27/23 16:02 03/27/23 16:15 03/27/23 16:17 Temperature Pulse Rate 88 88 86 Pulse Rate [Pulse Oximeter] Pulse Rate [Right Radial] Respiratory Rate 14 Blood Pressure 103/60 102/75 Blood Pressure [Le ft Upper Arm] Blood Pressure [Ri ght Arm] Pulse Oximetry 96 95 96 Oxygen Delivery Me thod Room Air Oxygen Flow Rate 03/27/23 16:35 03/27/23 16:45 03/27/23 17:28 Temperature 98.6 F Pulse Rate 86 87 Pulse Rate [Pulse Oximeter] Pulse Rate [Right Radial] 88 Respiratory Rate 18 Blood Pressure 108/56 L Blood Pressure [Le ft Upper Arm] Blood Pressure [Ri ght Arm] 107/75 Pulse Oximetry 86 L 93 93 Oxygen Delivery Me thod Room Air Nasal Cannula Nasal Cannula Oxygen Flow Rate 4 1 03/27/23 17:32 03/27/23 17:38 03/27/23 18:28 Temperature 96.8 F L Pulse Rate 83 Pulse Rate [Pulse Oximeter] Pulse Rate [Right Radial] 88 Respiratory Rate 18 18 Blood Pressure Blood Pressure [Le ft Upper Arm] Blood Pressure [Ri ght Arm] 107/75 Pulse Oximetry 1 L 2 L Oxygen Delivery Me thod Nasal Cannula Nasal Cannula Oxygen Flow Rate 03/27/23 18:29 03/27/23 19:00 03/27/23 23:00 Temperature 96.9 F L Pulse Rate Pulse Rate [Pulse Oximeter] Pulse Rate [Right Radial] 87 87 Respiratory Rate 18 18 Blood Pressure Blood Pressure [Le ft Upper Arm] Blood Pressure [Ri ght Arm] 92/58 L Pulse Oximetry 92 94 Oxygen Delivery Me thod Nasal Cannula Nasal Cannula Oxygen Flow Rate 2 1 03/27/23 23:00 03/27/23 23:00 03/27/23 23:01 Temperature 96.7 F L Pulse Rate 81 Pulse Rate [Pulse Oximeter] Pulse Rate [Right Radial] 79 Respiratory Rate 20 20 Blood Pressure Blood Pressure [Le ft Upper Arm] Blood Pressure [Ri ght Arm] 114/89 Pulse Oximetry 94 97 Oxygen Delivery Me thod Nasal Cannula Nasal Cannula Oxygen Flow Rate 1 1 03/28/23 03:00 03/28/23 07:19 03/28/23 07:35 Temperature 96.2 F L Pulse Rate 77 Pulse Rate [Pulse Oximeter] Pulse Rate [Right Radial] 81 Respiratory Rate 20 20 Blood Pressure Blood Pressure [Le ft Upper Arm] Blood Pressure [Ri ght Arm] 106/76 Pulse Oximetry 96 94 Oxygen Delivery Me thod Nasal Cannula Nasal Cannula Oxygen Flow Rate 1 1 03/28/23 07:35 03/28/23 08:00 Temperature 98.6 F Pulse Rate Pulse Rate [Pulse Oximeter] Pulse Rate [Right Radial] 82 82 Respiratory Rate 20 20 Blood Pressure Blood Pressure [Le ft Upper Arm] Blood Pressure [Ri ght Arm] 111/70 Pulse Oximetry 94 Oxygen Delivery Me thod Nasal Cannula Oxygen Flow Rate 1 Labs Labs: Laboratory Results - last 24 hr 03/27/23 03/27/23 03/27/23 14:52 16:00 21:33 WBC 10.63 RBC 4.54 Hgb 13.9 Hct 40.9 MCV 90 MCH 31 MCHC 34 RDW Coeff of Robert 15.2 Plt Count 142 Neut % (Auto) 75.8 H Lymph % (Auto) 17.1 L [place] % (Auto) 4.0 Eos % (Auto) 2.5 Baso % (Auto) 0.2 Neut # (Auto) 8.10 H Lymph # (Auto) 1.80 [place] # (Auto) 0.40 Eos # (Auto) 0.27 Baso # (Auto) 0.02 Abs Immat Gran (auto) 0.04 Imm/Tot Granulo (auto) 0.4 INR 1.16 H APTT 146 H* D-Dimer Quant (PE/DVT) 7.27 H VBG pH 7.359 VBG pCO2 51 H VBG pO2 32.7 VBG HCO3 29 H Sodium 137 Potassium 2.7 L* Chloride 99 Carbon Dioxide 29 BUN 20 Creatinine 1.2 Estimated Creat Clear Estimated GFR 66 Glucose 145 H Calcium 8.6 Total Bilirubin 0.9 Direct Bilirubin 0.2 AST 36 H ALT 36 Alkaline Phosphatase 65 Lactate Baseline 1.7 Troponin I C-Reactive Protein 1.1 H NT-Pro-B Natriuret Pep 100 Total Protein 7.2 Albumin 3.9 TSH 2.880 SARS-CoV-2 (PCR) Negative SARS-CoV-2 POC Troponin I 0.01 03/28/23 05:15 WBC 8.95 RBC 4.38 Hgb 13.4 L Hct 39.7 MCV 91 MCH 31 MCHC 34 RDW Coeff of Robert 15.3 Plt Count 154 Neut % (Auto) 66.8 Lymph % (Auto) 24.7 [place] % (Auto) 6.1 Eos % (Auto) 2.1 Baso % (Auto) 0.2 Neut # (Auto) 5.97 Lymph # (Auto) 2.21 [place] # (Auto) 0.50 Eos # (Auto) 0.19 Baso # (Auto) 0.02 Abs Immat Gran (auto) 0.01 Imm/Tot Granulo (auto) 0.1 INR APTT 41 H D-Dimer Quant (PE/DVT) VBG pH VBG pCO2 VBG pO2 VBG HCO3 Sodium 136 Potassium 3.4 L Chloride 98 Carbon Dioxide 34 H BUN 17 Creatinine 1.0 Estimated Creat Clear 81.01 Estimated GFR 82 Glucose 124 H Calcium 8.7 Total Bilirubin Direct Bilirubin AST ALT Alkaline Phosphatase Lactate Baseline Troponin I 0.49 H* C-Reactive Protein NT-Pro-B Natriuret Pep 943 Total Protein Albumin TSH SARS-CoV-2 (PCR) POC Troponin I
[2023-03-28] MEDS: POTASSIUM BICARB 25 MEQ EFFERVESCENT TAB PO (12:06)
[2023-03-28 12:51] LABS: Partial Thromboplastin Time* 57 Seconds (23-33)
--- NOTE | 2023-03-28 15:53 | PC.NURSE ---
end of shift. pt has been pleasant. he wants to go home. heparin drip is infusing with no problems. did not change the drip rate today. PTT was done @ 1215. he is alert x3. he is on o2 1-2L nc. tele shows 1st degree HB. his left leg is very swollen +4. he is eating, drinking and void. he has IV in left and SL in the Right. he has no pain but he is feeling weak , tired and lethargic. he is SOB with activity. he is up with SBA.
[2023-03-28 18:50] LABS: Partial Thromboplastin Time* 50 Seconds (23-33)
--- NOTE | 2023-03-28 19:32 | PC.NURSE ---
Nursing Care Hours: [id number] Pt this shift calm and cooperative with cares, alert and oriented. No c/o pain. LS clear and diminished. Tele shows Sinus arrhythmia with 1st degree block. SpO2 93% on 1L, dips to 86% RA when up to bathroom. Denies feeling SOB. L leg edematous, red and warm. Open area L lateral side, no drainage, open to air. Eating and drinking WNL. Up to toilet with SB assist to help with IV. PTT drawn at 1825, Heparin drip changes per protocol. Per Dr. Damon, hold heparan bolus d/t discontinuing heparin at 2100 and switching to Eliquis. Change verified with charge nurse.
[2023-03-28] MEDS: APIXABAN 5 MG TABLET 10 MG PO (20:51)
[2023-03-28] MEDS: PSEUDOEPHEDRINE HCL 30 MG TABLET PO (21:11)
--- NOTE | 2023-03-28 23:11 | PM.PROC ---
Procedure Note Time Seen by Provider: 22:30 Date Seen: 03/28/23 Date of procedure: 03/28/23 [address] [facility] bill your pro fee for this procedure?: Yes Pre-op diagnosis: Monoarticular arthritis, suspect gout Post-op diagnosis: same Procedure: Patient seen for acute swollen, warm, painful left knee. Admitted to the hospital with left leg DVT and pulmonary embolism. On anticoagulation. History of recurrent gout, couple times a year. Patient reports current knee symptoms feel like gout. No fever. No trauma. Knee examination shows a palpable effusion, warmth and mild tenderness. I discussed risks and benefits of arthrocentesis. After this discussion patient agrees to proceed. The correct left knee is identified and sterilely prepped. Using sterile technique I aspirated 10 mL of cloudy yellow fluid from the superior lateral patella aspect of the knee. I inject 9 mL of 0.25% bupivacaine with epinephrine +40 mg of Kenalog. He does get relatively quick relief of his pain. No complications. Fluid is sent for evaluation of cell count, crystals and culture. Procedure Description: Left knee arthrocentesis with aspiration and injection Pathology: specimen obtained, sent to pathology (Fluid sent for cell counts crystals and culture) Condition: stable
[2023-03-28 23:30] LABS: Mononuclear WBC Body Fluid* 11 %; Polynuclear WBC Body Fluid* 89 %; RBC, Body Fluid* 1000 Cells/uL
[2023-03-28 23:33] LABS: BF Total Volume* 9
[2023-03-28 23:34] LABS: BF Clarity* Cloudy; BF Color Xanthochromic
[2023-03-29] MEDS: INDOMETHACIN 25 MG CAPSULE PO (01:09)
[2023-03-29] MEDS: COLCHICINE 0.6 MG CAPSULE PO (01:09)
[2023-03-29] MEDS: OMEPRAZOLE 20 MG CAPSULE DR PO (01:09)
[2023-03-29 04:00] VITALS: BP 124/91; PULSE 81; RESP 18; TEMP 36.1; O2SAT 91
[2023-03-29 04:35] VITALS: BP 124/91; PULSE 81; RESP 18; TEMP 36.1; O2SAT 91
[2023-03-29 06:10] VITALS: BP 124/91; PULSE 81; RESP 18; TEMP 36.1
--- NOTE | 2023-03-29 06:35 | PC.NURSE ---
Pt pleasant and cooperative. Up with minimal assist to the BR. VSS, No c/o chest pain. Did c/o left knee hurting and reminded him of when he had gout. Reported this Dr Damon and he did an aspiration of that knee and then sent it in. We are waiting for results. He did inject dwith medication. and Pt states it is better. He has sle;t well tonight.
[2023-03-29 07:00] VITALS: BP 138/94; PULSE 79; PULSE 81; PULSE 84; RESP 24; TEMP 36.3; O2SAT 91
[2023-03-29 07:31] LABS: Basophils Absolute Auto 0.02 K/uL (0.00-0.30); Basophils Percent Auto 0.2 % (0.0-3.0); Eosinophils Absolute Auto 0.03 K/uL (0.00-0.50); Eosinophils Percent Auto 0.3 % (0.0-7.0); Hematocrit 43.4 % (37.0-53.0); Hemoglobin* 14.3 gm/dL (13.5-17.5); Immature Granulocytes Abs Auto 0.04 K/uL (0.00-0.30); Immature Granulocytes Pct Auto 0.4 %; Lymphocytes Percent Auto 14.4 % (20-44); Mean Corpuscular HGB Conc 33 gm/dL (32-36); Mean Corpuscular Hemoglobin 30 pg (26-34); Mean Corpuscular Volume 92 fL (80-100); Monocytes Percent Auto 5.6 % (0.0-11.0); Neutrophils Percent Auto 79.1 % (42.0-72.0); Platelet Count* 161 K/uL (140-440); RDW Coefficient of Variation % 15.5 % (11.5-15.5); Red Blood Count 4.73 m/uL (4.30-5.90); White Blood Count* 9.46 K/uL (4.50-11.00)
[2023-03-29 07:40] LABS: Slide Review Reflex No
[2023-03-29 07:50] LABS: Albumin* 4.1 g/dL (3.3-5.0); Chloride* 99 mmol/L (96-114)
[2023-03-29 07:51] LABS: Potassium* 4.2 mmol/L (3.6-5.1); Sodium* 138 mmol/L (135-149)
[2023-03-29 07:53] LABS: Aspartate Amino Transferase* 30 U/L (12-35); Bilirubin Total* 0.9 mg/dL (0.1-1.5); Blood Urea Nitrogen* 15 mg/dL (7-30); Carbon Dioxide* 32 mmol/L (20-32); Creatinine* 1.1 mg/dL (0.5-1.5); Est. Creatinine Clearance* 73.65; Estimated Glomerular Filt Rate 74 ml/min; Total Protein* 7.6 g/dL (6.0-8.3)
[2023-03-29 07:54] LABS: Alanine Aminotransferase* 33 U/L (4-50); Alkaline Phosphatase* 62 U/L (40-150); Calcium* 9.1 mg/dL (8.4-10.6); Glucose* 142 mg/dL (60-115)
[2023-03-29] MEDS: THIAMINE 100 MG TABLET PO (08:46)
[2023-03-29] MEDS: APIXABAN 5 MG TABLET 10 MG PO (08:46)
--- NOTE | 2023-03-29 10:29 | PM.DS1 ---
DS: Providers Provider Date Seen: 03/29/23 Date of admission: 03/27/23 17:44 Primary care physician: Dwayne Deal MD Admitting Clinician: Ron Damon MD Consults: 03/29/23 08:17 Consult to Respiratory Therapy [CONS] Routine Comment: Reason(s) for RT Consult:: Consult Comment: eval for home O2 - can discharge when stable on RA Attending Physician on discharge: Lupe Triana MD Date of Discharge: 03/29/23 DS: Diagnosis Discharge Diagnosis (1) Pulmonary embolism: Status: Acute Problem details: - extensive burden of pulmonary emboli with evidence of right heart strain on CT performed in ED - hemodynamically stable, asymptomatic. Required low dose oxygen supplementation overnight, none during the day (recommend outpt ADRIAN workup) - treated with IV heparin for 24 hours, then transitioned to oral apixaban upon discharge - recurrent clot; will need lifelong anticoagulation. This was discussed with patient in detail during stay - TTE obtained 03/28 with below findings: Final Impressions: 1. Technically limited exam. 2. Normal LV size, not well visualized wall thickness, normal global systolic function with an estimated EF of 60 - 65%. 3. Right ventricular cavity size is normal, global systolic RV function is normal. 4. Mildly enlarged left atrium. 5. Mildly increased estimated pulmonary systolic pressures by tricuspid regurgitation velocity and right atrial pressure (~43 mmHg ). 6. The inferior vena cava is dilated, respiratory size variation less than 50%. 7. The aortic sinus is dilated with a maximal diameter of 4.3 cm. (2) DVT (deep venous thrombosis): Status: Acute Problem details: - extensive. Per formal radiology read: DVT is present within the left common femoral, femoral, deep femoral, popliteal, peroneal and posterior tibial veins. The DVT could extend more centrally into the left external iliac vein. The contralateral right common femoral vein is patent. (3) Sleep apnea: Status: Suspected Problem details: - clinically suspected; recommend outpatient evaluation for this after recovering from pulmonary embolism (4) Hypertension: Status: Acute Problem details: - hypotension on admission, 2/2 PE. Holding home Chlorthalidone and Losartan (5) Left knee pain: Status: Acute Problem details: - noted 03/28 in the evening, c/w gout flare, per patient - Dr. Damon performed arthrocentesis and injected Bupivicaine/Kenalog - treated with one dose each of Indomethacin, Colchicine, and Omeprazole - patient back to baseline 03/29 DS: Summary Hospital Course Hospital Course: Patient is a very pleasant 67-year-old man who presented to the hospital with shortness of breath and left lower extremity swelling. He was subsequently diagnosed with a left lower extremity DVT and extensive PE. Initiated on heparin drip, transitioned to oral Eliquis after 24 hours. He intermittently required low-dose supplemental oxygen was able to taper off this well during the day (recommend outpatient sleep study to evaluate for ADRIAN, patient aware). His home antihypertensives were held giving lower blood pressures during stay; he will restart his chlorthalidone on discharge but not restart his losartan until he sees his PCP for hospital follow-up. During stay, he had left knee pain, consistent with gout flare. Treated with immediate results. Details above. Comorbidities remained stable and patient was medically appropriate for discharge home on 03/29. Strict return precautions discussed. Status at Discharge Functional status at discharge: independent ambulation Time Spent with Patient Time attestation: Total time spent providing and/or coordinating discharge services: Time spent: Greater than 30 minutes Specific discharge activities: Medication reconciliation, care coordination with respiratory therapy, patient Education Exam Narrative: Exam Narrative: GEN: Alert and oriented, sitting comfortably in bed and speaking in full sentences HEENT: Normal external ears, EOMIs bilaterally, no scleral icterus CV: RRR, No concerning murmurs R: No tachypnea, LCTA bilaterally without concerning wheezing, air movement adequate Ext: + edema of left lower extremity, improved from admission. Effusion of left knee has significantly improved and patient is ambulating without pain Skin: Hyperpigmentation of bilateral lower extremities consistent with venous stasis Neuro: Nonfocal Psych: Appropriate Const: Vital Signs, click to edit/add: Vital Signs - 24 hr 03/28/23 11:15 03/28/23 15:00 03/28/23 15:00 Temperature 98.5 F 97.6 F Pulse Rate Pulse Rate [Right Radial] 85 85 85 Respiratory Rate 20 24 24 Blood Pressure [Ri ght Arm] 120/79 106/79 Pulse Oximetry 91 93 Oxygen Delivery Me thod Room Air Nasal Cannula Oxygen Flow Rate 1 03/28/23 15:00 03/28/23 18:00 03/28/23 19:57 Temperature 97.9 F Pulse Rate 94 Pulse Rate [Right Radial] 89 Respiratory Rate 24 20 Blood Pressure [Ri ght Arm] 111/79 Pulse Oximetry 93 92 Oxygen Delivery Me thod Nasal Cannula Nasal Cannula Oxygen Flow Rate 1 1 03/28/23 20:30 03/28/23 20:35 03/28/23 23:00 Temperature 97.9 F Pulse Rate 91 90 Pulse Rate [Right Radial] 89 Respiratory Rate 20 Blood Pressure [Ri ght Arm] 111/79 Pulse Oximetry 92 Oxygen Delivery Me thod Nasal Cannula Oxygen Flow Rate 1 03/28/23 23:00 03/28/23 23:00 03/28/23 23:00 Temperature 98.6 F Pulse Rate Pulse Rate [Right Radial] 94 90 Respiratory Rate 20 20 Blood Pressure [Ri ght Arm] 114/78 Pulse Oximetry 92 Oxygen Delivery Me thod Nasal Cannula Oxygen Flow Rate 1 03/29/23 04:00 03/29/23 04:35 03/29/23 06:10 Temperature 96.9 F L 96.9 F L 96.9 F L Pulse Rate Pulse Rate [Right Radial] 81 81 81 Respiratory Rate 18 18 18 Blood Pressure [Ri ght Arm] 124/91 H 124/91 H 124/91 H Pulse Oximetry 91 91 Oxygen Delivery Me thod Nasal Cannula Nasal Cannula Nasal Cannula Oxygen Flow Rate 1 1 1 03/29/23 07:00 03/29/23 07:00 03/29/23 07:00 Temperature Pulse Rate 84 Pulse Rate [Right Radial] 81 Respiratory Rate 24 24 Blood Pressure [Ri ght Arm] Pulse Oximetry 91 Oxygen Delivery Me thod Room Air Oxygen Flow Rate 03/29/23 07:00 Temperature 97.3 F L Pulse Rate Pulse Rate [Right Radial] 79 Respiratory Rate 24 Blood Pressure [Ri ght Arm] 138/94 H Pulse Oximetry 91 Oxygen Delivery Me thod Room Air Oxygen Flow Rate DS: Data Data Completed and Pending Labs on day of discharge: Labs from last 24 hours 03/29/23 03/28/23 03/28/23 07:10 23:02 18:28 WBC 9.46 RBC 4.73 Hgb 14.3 Hct 43.4 MCV 92 MCH 30 MCHC 33 RDW Coeff of Robert 15.5 Plt Count 161 Neut % (Auto) 79.1 H Lymph % (Auto) 14.4 L [place] % (Auto) 5.6 Eos % (Auto) 0.3 Baso % (Auto) 0.2 Neut # (Auto) 7.50 H Lymph # (Auto) 1.40 [place] # (Auto) 0.50 Eos # (Auto) 0.03 Baso # (Auto) 0.02 Abs Immat Gran (auto) 0.04 Imm/Tot Granulo (auto) 0.4 APTT 50 H Sodium 138 Potassium 4.2 Chloride 99 Carbon Dioxide 32 BUN 15 Creatinine 1.1 Estimated Creat Clear 73.65 Estimated GFR 74 Glucose 142 H Calcium 9.1 Magnesium 2.0 Total Bilirubin 0.9 AST 30 ALT 33 Alkaline Phosphatase 62 Total Protein 7.6 Albumin 4.1 Fluid Volume 9 Fluid Color Xanthochromic A Fluid Appearance Cloudy A Fluid WBC 25665 Fluid RBC 1000 Fluid Polynuclear WBCs 89 Fluid Mononuclear WBCs 11 Fluid Crystal ID Pending 03/28/23 12:28 WBC RBC Hgb Hct MCV MCH MCHC RDW Coeff of Robert Plt Count Neut % (Auto) Lymph % (Auto) [place] % (Auto) Eos % (Auto) Baso % (Auto) Neut # (Auto) Lymph # (Auto) [place] # (Auto) Eos # (Auto) Baso # (Auto) Abs Immat Gran (auto) Imm/Tot Granulo (auto) APTT 57 H Sodium Potassium Chloride Carbon Dioxide BUN Creatinine Estimated Creat Clear Estimated GFR Glucose Calcium Magnesium Total Bilirubin AST ALT Alkaline Phosphatase Total Protein Albumin Fluid Volume Fluid Color Fluid Appearance Fluid WBC Fluid RBC Fluid Polynuclear WBCs Fluid Mononuclear WBCs Fluid Crystal ID Preliminary micro results at discharge 03/28/23 23:02 Body Fluid Culture - Preliminary Synovial Fluid Culture in Progress Discharge Plan Discharge Disposition: Home, Self-Care Date of Admission: 03/27/23 17:44 Attending Provider on Discharge: Lupe Triana Primary Care Provider: Dwayne Deal Condition: Improved Anticipated Discharge Date/Time: 03/29/23 09:40 Discharge Medications: New Eliquis 5 mg tablet 5 mg PO BID Qty: 60 0RF Rx Instructions: TAKE 2 tabs BID for 6 days, then on APRIL 04, start ONE TAB po BID Continued chlorthalidone 25 mg tablet 25 mg PO DAILY fluticasone propionate 50 mcg/actuation spray,suspension 2 spray INTRANASAL DAILY Held losartan 100 mg tablet 100 mg PO DAILY Hold Instructions: Resume on 07/21/23. Hold Losartan until your f/u with Dr. Deal, then have him recheck your BP to see if you can restart it Discharge Orders: Discharge Order (Routine); Ordered 03/29/23 Ordered By: Lupe Triana Patient Education: Apixaban (By mouth), Pulmonary Embolism (DC), Deep Vein Thrombosis (DC) Additional Instructions: CONTINUE ELIQUIS at home - it is VERY IMPORTANT that you stay on this blood thinner! Take 2 Eliquis twice per day for 6 more days, then start 1 tablet twice/day. See Dr. Deal next week for a BP check. You can restart your Chlorthalidone tomorrow, but don't restart your Losartan until you see him again. It would be a good idea to have a sleep study. You need to return to the hospital urgently for any chest pain, shortness of breath, or other concerns. Activity Level: Activity as Tolerated and No strenuous activity Discharge Diet: Regular Follow Up Appointments: Dwayne Deal MD [Primary Care Provider] - 04/05/23 11:45 am (hospital f/u for PE and DVT, BP check in [place]) Forms: [employer] Info Instructions
[2023-03-29 11:00] VITALS: BP 130/81; PULSE 89; RESP 20; TEMP 36.3; O2SAT 94
[2023-03-29 12:53] VITALS: BP 130/81; PULSE 89; RESP 20; TEMP 36.3
--- NOTE | 2023-03-29 12:56 | PC.NURSE ---
Nursing Care Hours: [id number] Pt this shift calm and cooperative, alert and oriented. VSS. Independent in room. Pt trialed self without O2 and remained at 90-91%. Ambulated iraheta x1, monitoring spo2 and it remained 93-94% RA. LS clear but diminished. Denies chest pain or SOB. Left leg decreased warmth and redness compared to 03/28, swelling still present. Eating, drinking, and voiding appropriately.
== END 2023-03-29 10:50 | disposition home or self-care (01) | DRG 176 ==
LOC: ED 16:51 → MEDSURG 17:12
PROVIDERS: Family Medicine; Admitting Provider Family Medicine; Emergency Provider Emergency Medicine; PCP Family Medicine; Visit Provider Family Medicine
DX: I26.99 Other pulmonary embolism without acute cor pulmonale (principal); I82.412 Acute embolism and thrombosis of left femoral vein; I82.432 Acute embolism and thrombosis of left popliteal vein; I82.452 Acute embolism and thrombosis of left peroneal vein; I82.442 Acute embolism and thrombosis of left tibial vein; I95.9 Hypotension, unspecified; Z86.711 Personal history of pulmonary embolism; I44.0 Atrioventricular block, first degree; G47.30 Sleep apnea, unspecified; I10 Essential (primary) hypertension; K21.9 Gastro-esophageal reflux disease without esophagitis; E66.9 Obesity, unspecified; M10.9 Gout, unspecified; M25.562 Pain in left knee; Z68.39 Body mass index [BMI] 39.0-39.9, adult
CPT/HCPCS: 36415; 71260; 80048; 80053; 80076; 82803; 83605; 83735; 83880; 84443; 84484; 85025; 85027; 85379; 85610; 85730; 86140; 87070; 87635; 89051; 89060; 93005; 93306; 93971; 94761; 99285; 99291; A9270; J1644; J7030; Q9967

== ENCOUNTER 2023-06-09 22:06 | Emergency (ER) | payer OTHER, SELFPAY ==
[2023-06-09 22:19] VITALS: BP 145/96; PULSE 70; RESP 14; TEMP 36.1; O2SAT 94; BMI 40.6
--- NOTE | 2023-06-09 22:27 | CRLHL7_ITS ---
For Patients: As a result of the Century Cures Act, medical imaging exams and procedure reports are released immediately into your electronic medical record. You may view this report before your referring provider. If you have questions, please contact your health care provider. INDICATION: Leg pain and swelling. Deep venous thrombosis. TECHNIQUE: Ultrasound venous duplex lower left extremity. Compression venous exam was performed using valadez-scale, color Doppler, and spectral Doppler analysis. COMPARISON: March 27, 2023. FINDINGS: Deep veins: Extensive deep venous thrombosis with thrombus in the femoral and popliteal veins. Superficial veins: Greater saphenous vein is fully compressible. No popliteal cyst. IMPRESSION: Long segment DVT in the left lower extremity is similar to the prior exam. Much of the thrombus is likely chronic. It is difficult to discern but could be acute versus chronic thrombus. Dictated by Steve Hardy MD @ 06/10/2023 12:22:37 AM (Electronically Signed)
--- NOTE | 2023-06-10 00:11 | ED.GENADULT ---
HPI - General Adult General Date Seen: 06/10/23 Chief complaint: Extremity Pain/Injury, Lower Stated complaint: Swollen left leg Time Seen by Provider: 06/09/23 22:48 Source: patient Mode of arrival: ambulatory Limitations: no limitations History of Present Illness HPI narrative: Patient is a 67-year-old male who presents for evaluation of swelling in his left leg. I saw him back in March at which time he had significant burden PE and DVT in the left leg. He has been taking Eliquis faithfully twice a day since then. 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 He has not had chest pain or difficulty breathing, diaphoresis or other symptoms along those lines. Related Data Home Medications Medication Instructions Recorded Confirmed chlorthalidone 25 mg tablet 25 mg PO DAILY 11/05/22 03/27/23 losartan 100 mg tablet 100 mg PO DAILY 11/05/22 03/27/23 fluticasone propionate 50 2 spray intranasal DAILY 03/27/23 03/27/23 mcg/actuation nasal spray,suspension Previous Rx's Medication Instructions Recorded apixaban 5 mg tablet (Eliquis) 5 mg PO BID #60 tabs 03/29/23 Allergies Allergy/AdvReac Type Severity Reaction Status Date / Time No Known Drug Allergies Allergy Verified 11/05/22 16:52 Review of Systems Status of ROS: Reports: 10 or more systems reviewed and unremarkable except as noted in History and below [facility] Medical History DVT (deep venous thrombosis) ?I82.409 - Acute embolism and thrombosis of unspecified deep veins of unspecified lower extremity (ICD-10) Sleep apnea ?G47.30 - Sleep apnea, unspecified (ICD-10) Obesity ?E66.9 - Obesity, unspecified (ICD-10) Gastroesophageal reflux disease ?K21.9 - Gastro-esophageal reflux disease without esophagitis (ICD-10) Seasonal allergies ?J30.2 - Other seasonal allergic rhinitis (ICD-10) Hypertension ?I10 - Essential (primary) hypertension (ICD-10) Surgical History H/O inguinal hernia repair ?Z98.890 - Other specified postprocedural states (ICD-10) ?Z87.19 - Personal history of other diseases of the digestive system (ICD-10) H/O umbilical hernia repair ?Z98.890 - Other specified postprocedural states (ICD-10) ?Z87.19 - Personal history of other diseases of the digestive system (ICD-10) Family History Father High blood pressure Heart disease Social History Narrative: [place] 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 His is healthcare power of employee benefits attorney. Code status is full. He does not smoke. Drinks 0-3 beers per day. He does not have any withdrawal symptoms if he does not drink What is your current living situation?: I presently have a place to live Problems where you live: no known problems Problems where you live details: na In the past 12 months, utilities in danger of being shut off: no In past 12 months, lack of transportation kept you from medical appts, meetings, work, or getting things needed for daily living: no In the past 12 mos, have been you worried that your food would run out before you had money to buy more?: never true In the past 12 mos, the food you bought just didn't last and you didn't have money to buy more?: never true Highest level of school completed/degree received: some college, no degree Smoking Status: Never smoker Do you use any of these nicotine containing products: None Second hand tobacco smoke exposure: No How often do you have a drink containing alcohol: 2-3 times a week Alcohol type: beer How many standard drinks containing alcohol do you have on a typical day: 1 or 2 How often do you have six or more drinks on one occasion: Never AUDIT-C Alcohol total score: 3 Non-prescribed substance use: denies use Caffeine: Yes (little) How often does anyone, including family, friends and others, physically hurt you: never How often does anyone, including family, friends and others, insult or talk down to you: never How often does anyone, including family, friends and others, threaten you with harm: never How often does anyone, including family, friends and others, scream or curse at you: never service: No Exam Narrative: Exam Narrative: Vital signs as noted above. In general, an alert, well-appearing patient. Breathing easily, looks comfortable. Head: Normocephalic, atraumatic. Eyes: Pupils are equal reactive. Extraocular movements are full. Conjunctivae are normal. ENT: Mucous membranes are moist. Neck: Supple without lymphadenopathy. Heart: Regular rate and rhythm. No murmur or rub. Lungs: Clear bilaterally. No increased work of breathing, crackles or wheezes. Abdomen: Soft and nontender. No organomegaly. Extremities: On the left, he has [id number] edema, he has venous stasis changes in bilateral lower extremities. There is no erythema warmth, nontender to palpation. Pulses intact. Neurologic: Patient is alert and oriented to person and place. Speech is fluent. Face is symmetric. Moves all extremities equally. Affect: Normal. Skin: Warm and dry. Well perfused. Const: Vital Signs, click to edit/add: Vital Signs - 24 hr 06/09/23 22:19 Temperature 97.0 F L Pulse Rate [Pulse Oximeter] 70 Respiratory Rate 14 Blood Pressure [Ri ght Upper Arm] 145/96 H Pulse Oximetry 94 Oxygen Delivery Me thod Room Air Documenting provider has reviewed patient's vital signs: yes Course Course ED Course: Repeat ultrasound done tonight read by the tech as showing chronic clot, some occlusive cough, some partially occlusive. 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 Awaiting the final radiology read, assuming it is the same, discussed with him that this chronic caught is probably causing some increased venous occlusion and venous stasis which is leading to swelling in that leg. Final radiology report is as follows: IMPRESSION: Long segment DVT in the left lower extremity is similar to the prior exam. Much of the thrombus is likely chronic. It is difficult to discern but could be acute versus chronic thrombus. Overall clinically I suspect chronic thrombus versus acute, he has taken his Eliquis religiously, he does not have significant pain, erythema, warmth, tenderness or other changes to the leg. 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 I have recommended that for now he continue his Eliquis, primary care follow-up in the next week or so for re-evaluation. We did discuss that if he has any symptoms suggestive of PE such as chest pain, shortness of breath, lightheadedness, fainting, diaphoresis that he return to the emergency department and at that time would recommend repeat CT scanning of the chest. Vital Signs Vital signs: Initial Vital Signs Temperature 97.0 F L 06/09/23 22:19 Temperature Source Temporal Artery Scan 06/09/23 22:19 Pulse Rate 70 06/09/23 22:19 Pulse Rhythm Regular 06/09/23 22:19 Respiratory Rate 14 06/09/23 22:19 Blood Pressure 145/96 H 06/09/23 22:19 Blood Pressure Mean 112 H 06/09/23 22:19 Blood Pressure Position Sitting 06/09/23 22:19 Pulse Oximetry 94 06/09/23 22:19 Oxygen Delivery Method Room Air 06/09/23 22:19 Vital Signs Temperature 97.0 F L 06/09/23 22:19 Pulse Rate 70 06/09/23 22:19 Respiratory Rate 14 06/09/23 22:19 Blood Pressure 145/96 H 06/09/23 22:19 Pulse Oximetry 94 06/09/23 22:19 Oxygen Delivery Method Room Air 06/09/23 22:19 Temperature 97.0 F L 06/09/23 22:19 Pulse Rate 70 06/09/23 22:19 Respiratory Rate 14 06/09/23 22:19 Blood Pressure 145/96 H 06/09/23 22:19 Pulse Oximetry 94 06/09/23 22:19 Oxygen Delivery Method Room Air 06/09/23 22:19 Discharge Plan Discharge Clinical Impression: Chronic deep vein thrombosis (DVT) of left lower extremity Patient Disposition: Home, Self-Care Condition: Stable Instructions: Deep Vein Thrombosis (ED) Additional Instructions: At this time, I suspect that the clot in your leg is likely chronic, that your having some increased venous stasis due to partial occlusion of the veins in your leg which may be permanent. As much as possible, I would elevate your leg, wear your compression stockings, try to take breaks during the day where you walk around a little bit rather than sitting still the entire day. Recommend primary care follow-up in the next week or so for recheck to make sure that you are stable and no new symptoms have developed. If at any time you have chest pain, shortness of breath, lightheadedness, fainting, diaphoresis etcetera, return to the emergency department. Prescriptions: No Action chlorthalidone 25 mg tablet 25 mg PO DAILY losartan 100 mg tablet 100 mg PO DAILY Hold Instructions: Resume on 04/05/23. Hold Losartan until your f/u with Dr. Deal, then have him recheck your BP to see if you can restart it fluticasone propionate 50 mcg/actuation spray,suspension 2 spray INTRANASAL DAILY Eliquis 5 mg tablet 5 mg PO BID Qty: 60 0RF Rx Instructions: TAKE 2 tabs BID for 6 days, then on APRIL 04, start ONE TAB po BID Follow Up/Referrals: Dwayne Deal MD [Primary Care Provider] - Stand Alone Forms: [employer] Info Instructions
== END 2023-06-10 00:43 | disposition home or self-care (01) ==
PROVIDERS: Emergency Provider Emergency Medicine; PCP Family Medicine
DX: I82.502 Chronic embolism and thrombosis of unspecified deep veins of left lower extremity (principal)
CPT/HCPCS: 93971; 99283; 99284

== ENCOUNTER 2023-06-26 05:29 | Emergency (ER) | payer OTHER, SELFPAY ==
--- NOTE | 2023-06-26 05:32 | ED.GENADULT ---
HPI - General Adult General Time Seen by Provider: 05:33 Date Seen: 06/26/23 Chief complaint: Back Injury/Pain Stated complaint: lower back pain Time Seen by Provider: 06/26/23 05:50 Source: patient, RN notes reviewed and old records reviewed Mode of arrival: ambulatory Limitations: no limitations History of Present Illness HPI narrative: 67-year-old male who comes today with low back pain. Review of prior which department hospital records shows patient was recently diagnosed with DVT and admitted and started on anticoagulation. Patient presents today with about a week of back pain. Bilateral mid back, worse on the right. Better after rest, worse after activity and worse with movement. He took Tylenol for this. He does note a little bit of urinary frequency but no dysuria or hematuria. He has an appointment with [facility] for [facility] tomorrow but became concern with some reading on the Internet and so decided come the emergency department. Related Data Home Medications Medication Instructions Recorded Confirmed chlorthalidone 25 mg tablet 25 mg PO DAILY 11/05/22 06/26/23 losartan 100 mg tablet 100 mg PO DAILY 11/05/22 06/26/23 fluticasone propionate 50 2 spray intranasal DAILY 03/27/23 06/26/23 mcg/actuation nasal spray,suspension Previous Rx's Medication Instructions Recorded apixaban 5 mg tablet (Eliquis) 5 mg PO BID #60 tabs 03/29/23 Allergies Allergy/AdvReac Type Severity Reaction Status Date / Time No Known Drug Allergies Allergy Verified 06/26/23 06:13 [facility] Medical History DVT (deep venous thrombosis) ?I82.409 - Acute embolism and thrombosis of unspecified deep veins of unspecified lower extremity (ICD-10) Sleep apnea ?G47.30 - Sleep apnea, unspecified (ICD-10) Obesity ?E66.9 - Obesity, unspecified (ICD-10) Gastroesophageal reflux disease ?K21.9 - Gastro-esophageal reflux disease without esophagitis (ICD-10) Seasonal allergies ?J30.2 - Other seasonal allergic rhinitis (ICD-10) Hypertension ?I10 - Essential (primary) hypertension (ICD-10) Surgical History H/O inguinal hernia repair ?Z98.890 - Other specified postprocedural states (ICD-10) ?Z87.19 - Personal history of other diseases of the digestive system (ICD-10) H/O umbilical hernia repair ?Z98.890 - Other specified postprocedural states (ICD-10) ?Z87.19 - Personal history of other diseases of the digestive system (ICD-10) Family History Father High blood pressure Heart disease Social History Narrative: [place] 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 His is healthcare power of disability attorney. Code status is full. He does not smoke. Drinks 0-3 beers per day. He does not have any withdrawal symptoms if he does not drink What is your current living situation?: I presently have a place to live Problems where you live: no known problems Problems where you live details: na In the past 12 months, utilities in danger of being shut off: no In past 12 months, lack of transportation kept you from medical appts, meetings, work, or getting things needed for daily living: no In the past 12 mos, have been you worried that your food would run out before you had money to buy more?: never true In the past 12 mos, the food you bought just didn't last and you didn't have money to buy more?: never true Highest level of school completed/degree received: some college, no degree Smoking Status: Never smoker Do you use any of these nicotine containing products: None Second hand tobacco smoke exposure: No How often do you have a drink containing alcohol: 2-3 times a week Alcohol type: beer How many standard drinks containing alcohol do you have on a typical day: 1 or 2 How often do you have six or more drinks on one occasion: Never AUDIT-C Alcohol total score: 3 Non-prescribed substance use: denies use Caffeine: Yes (little) How often does anyone, including family, friends and others, physically hurt you: never How often does anyone, including family, friends and others, insult or talk down to you: never How often does anyone, including family, friends and others, threaten you with harm: never How often does anyone, including family, friends and others, scream or curse at you: never service: No Exam Narrative: Exam Narrative: General: Well-developed and well-nourished, no acute distress Head: Atraumatic and normocephalic Eyes: Pupils are equal reactive, extraocular motions intact, conjunctiva clear ENT: External nose and ears are normal, posterior pharynx without erythema or exudate Neck: No midline cervical tenderness, full spontaneous range of motion the neck, trachea midline, no adenopathy Heart: Regular rate and rhythm no murmurs or thrills Lungs: Clear to auscultation bilaterally without wheezes or crackles Abdomen: Soft, nontender, nondistended with active bowel sounds. No CVA tenderness to percussion Musculoskeletal: Moderate Right mid and low lumbar tenderness, mild left lumbar tenderness Neurologic: Awake, alert, and oriented x3, no gross focal neurologic deficits, cranial nerves intact as tested Psych: Mood and affect are appropriate Skin: No rashes Const: Vital Signs, click to edit/add: Vital Signs - 24 hr 06/26/23 06:11 Temperature 98.0 F Pulse Rate [Right Pulse Oximeter] 72 Respiratory Rate 18 Blood Pressure [Ri ght Upper Arm] 154/89 H Pulse Oximetry 99 Oxygen Delivery Me thod Room Air Course Course ED Course: Patient seen examined, prior records reviewed. Patient with history of PE and DVT presents today with atraumatic back pain for about a week. No CVA tenderness, he has tenderness of the lumbar paraspinous musculature predominantly on the right but also little bit on left. Says pain is worse with movement and also worse at the end of the day, better after rest. Symptoms seem most consistent with musculoskeletal pain, however he does note some urinary frequency with no hematuria dysuria. Urinalysis is ordered, Toradol IM will be given an anticipate discharge with musculoskeletal back pain Reevaluation(s) Time of Reevaluation #1: 06:16 Reevaluation #1: Urinalysis independently interpreted by me with no blood, no evidence for infection. Patient is stable for discharge Vital Signs Vital signs: Initial Vital Signs Temperature 98.0 F 06/26/23 06:11 Temperature Source Temporal Artery Scan 06/26/23 06:11 Pulse Rate 72 06/26/23 06:11 Respiratory Rate 18 06/26/23 06:11 Blood Pressure 154/89 H 06/26/23 06:11 Blood Pressure Mean 110 H 06/26/23 06:11 Blood Pressure Position Sitting 06/26/23 06:11 Pulse Oximetry 99 06/26/23 06:11 Oxygen Delivery Method Room Air 06/26/23 06:11 Vital Signs Temperature 98.0 F 06/26/23 06:11 Pulse Rate 72 06/26/23 06:11 Respiratory Rate 18 06/26/23 06:11 Blood Pressure 154/89 H 06/26/23 06:11 Pulse Oximetry 99 06/26/23 06:11 Oxygen Delivery Method Room Air 06/26/23 06:11 Temperature 98.0 F 06/26/23 06:11 Pulse Rate 72 06/26/23 06:11 Respiratory Rate 18 06/26/23 06:11 Blood Pressure 154/89 H 06/26/23 06:11 Pulse Oximetry 99 06/26/23 06:11 Oxygen Delivery Method Room Air 06/26/23 06:11 Medical Decision Making Lab Data Labs: Lab Results 06/26/23 Range/Units 05:46 Urine Color Yellow (Yellow) Urine Appearance Clear (Clear) Urine pH 6.5 (5.0-8.5) Ur Specific Wilson 1.015 (1.000-1.030) Urine Protein Negative (Negative) Urine Glucose (UA) Negative (Negative) Urine Ketones Negative (Negative) Urine Blood Negative (Negative) Urine Nitrite Negative (Negative) Urine Bilirubin Negative (Negative) Urine Urobilinogen 0.2 (0.2-1.0) Ur Leukocyte Esterase Negative (Negative) Urine RBC 0-2 (0-2) Urine WBC 0-2 (0-5) Ur Squamous Epith Cells None (None-Few) Urine Bacteria None (None) Discharge Plan Discharge Clinical Impression: Acute lumbar back pain Patient Disposition: Home, Self-Care Condition: Stable Instructions: Acute Low Back Pain (ED) Additional Instructions: Ice or heat for comfort Tylenol as needed for pain Follow-up with your primary care provider as scheduled for further evaluation and treatment, possible physical therapy Activity Level: Activity as Tolerated Discharge Diet: Regular Prescriptions: No Action chlorthalidone 25 mg tablet 25 mg PO DAILY losartan 100 mg tablet 100 mg PO DAILY Hold Instructions: Resume on 04/05/23. Hold Losartan until your f/u with Dr. Deal, then have him recheck your BP to see if you can restart it fluticasone propionate 50 mcg/actuation spray,suspension 2 spray INTRANASAL DAILY Eliquis 5 mg tablet 5 mg PO BID Qty: 60 0RF Rx Instructions: TAKE 2 tabs BID for 6 days, then on APRIL 04, start ONE TAB po BID Follow Up/Referrals: Dwayne Deal MD [Primary Care Provider] - Stand Alone Forms: [employer] Info Instructions
[2023-06-26 05:57] LABS: Appearance Urine Clear (Clear); Bilirubin Urine Negative (Negative); Blood Urine Negative (Negative); Color Urine Yellow (Yellow); Glucose Urine Negative (Negative); Ketones Urine Negative (Negative); Leukocyte Esterase Urine Negative (Negative); Nitrite Urine Negative (Negative); Protein Urine Negative (Negative); Specific Gravity Urine 1.015 (1.000-1.030); Urobilinogen Urine 0.2 (0.2-1.0); pH Urine 6.5 (5.0-8.5)
[2023-06-26 06:08] LABS: RBC Urine 0-2 (0-2); WBC Urine 0-2 (0-5)
[2023-06-26 06:11] VITALS: BP 154/89; PULSE 72; RESP 18; TEMP 36.7; O2SAT 99; BMI 40.4
[2023-06-26 06:19] VITALS: TEMP 36.7
[2023-06-26] MEDS: KETOROLAC 30 MG/ML inj IM (06:19)
[2023-06-26 06:20] VITALS: BP 154/89; PULSE 72; RESP 18; TEMP 36.7
== END 2023-06-26 06:20 | disposition home or self-care (01) ==
LOC: ED 06:01
PROVIDERS: Emergency Provider Family Medicine; PCP Family Medicine
DX: M54.50 Low back pain, unspecified (principal)
CPT/HCPCS: 81001; 96372; 99283; 99284; J1885